=== PATIENT | female | born 1975 | race Caucasian/White ===

== ENCOUNTER 2024-03-29 16:47 | Emergency (ER) | payer OTHER, SELFPAY ==
--- NOTE | ~2024-03-29 | XR_ITS ---
EXAMINATION: XR CHEST CLINICAL INFORMATION: Shortness of breath. COMPARISON: None available. TECHNIQUE: Frontal view of the chest was obtained. FINDINGS: The patient is moderately rotated to the right. The lungs are adequately expanded. No evidence of focal consolidation, pleural effusion, pulmonary edema, or pneumothorax. The cardiomediastinal silhouette is within normal limits. Aortic calcifications. No acute osseous abnormalities. XR/XR chest 1V IMPRESSION: No No evidence acute pulmonary abnormalities. Electronically signed by: Mckay Cantrell DO 03/29/2024 08:49 PM EST
--- NOTE | ~2024-03-29 | CT_ITS ---
EXAMINATION: CT ANGIOGRAM HEAD CT ANGIOGRAM NECK CLINICAL INFORMATION: Altered mental status. COMPARISON: None available. TECHNIQUE: Initial noncontrast client account representative imaging of the head and neck was performed. Noncontrast head CT was also performed. Test bolus sequences followed by intravenous administration 70 mL of Omnipaque 350. Helical imaging was performed in the axial plane from the aortic arch to the skull vertex. Delayed postcontrast imaging of the head was also performed. The data was processed at the surgical technologist's workstation for generation of MIP sequences. Angled MIPs and volume rendered reformatted images were also generated at an offline 3D workstation. Stenoses are assessed in accordance with NASCET criteria unless otherwise indicated. This CT examination was performed using dose optimization techniques as appropriate, variously including the following: *Automated exposure control. *Adjustment of mA and/or kV according to patient size (this includes techniques or standardized protocols for targeted exams where dose is matched to indication/reason for exam; i.e. extremities or head). *Use of iterative reconstruction technique. DLP: 2226 mGy-cm FINDINGS: CT Head: There is no evidence of acute intracranial hemorrhage or edematous territorial infarction. Lorenzo-white matter differentiation is preserved. Prominent perivascular spaces caudal to the lentiform nuclei. No additional parenchymal attenuation abnormalities. The ventricles are normal in morphology and size. No evidence for obstructive hydrocephalus. No abnormal mass effect or midline shift. No extra-axial fluid collections. No pathologic intra-axial enhancement or regional oligemia. No acute soft tissue or osseous abnormalities. Mild mucosal thickening of the paranasal sinuses. The mastoid air cells and middle ear cavities are clear. Multifocal odontogenic enamel erosions and periapical lucencies, most notably affecting the mandibular right molar. CT Neck: There is a 4.2 cm heterogeneous lesion in the inferior aspect of the left thyroid lobe with extension into the thoracic inlet. Moderate irregular enlargement of the remainder of the thyroid gland. The remaining cervical soft tissues are within normal limits. Straightening of the normal cervical lordosis. Moderate degenerative disc disease from C5-T1. Facet and uncovertebral joint arthropathy leads to osseous encroachment on the neural foramina from C2-C7. CT Upper Chest: The visualized lung apices and upper mediastinum are within normal limits. Neck CTA: Aortic Arch: Normal contour and caliber. Classic 3 vessel branching pattern of the aortic arch. Great Vessel Origins: No significant stenosis of the branch origins. Right Common Carotid Artery: No focal stenosis or occlusion. Cervical Right Internal Carotid Artery: Normal opacification without focal stenosis or occlusion. Left Common Carotid Artery: No focal stenosis or occlusion. Cervical Left Internal Carotid Artery: Minimal calcific atherosclerotic disease of the carotid bulb and proximal internal carotid artery without flow-limiting stenosis. Cervical Right Vertebral Artery: Co-dominant. 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 No focal stenosis or occlusion. Cervical Left Vertebral Artery: Co-dominant. No focal stenosis or occlusion. Brain CTA: Intracranial Internal Carotid Arteries: Mild calcific atherosclerotic disease of the intracranial internal carotid arteries without occlusion or flow-limiting stenosis. Right Anterior Cerebral Artery: Normal A1 segment. Normal opacification of the distal [place] segments. Left Anterior Cerebral Artery: Normal A1 segment. Normal opacification of the distal [place] segments. Anterior Communicating Artery: Normal. Right Middle Cerebral Artery: Normal M1 segment of the MCA without focal stenosis or occlusion. Normal arborization of the distal segments. Left Middle Cerebral Artery: Normal M1 segment of the MCA without focal stenosis or occlusion. Normal arborization of the distal segments. Right Vertebral Artery: Normal V4 segment. The posterior inferior cerebellar artery is not well opacified; however, there is no CT evidence of acute occlusion. Left Vertebral Artery: Normal V4 segment. The posterior inferior cerebellar artery is not well opacified; however, there is no CT evidence of acute occlusion. Basilar Artery: Normal without focal stenosis or occlusion. Normal appearance of the proximal superior cerebellar arteries. Right Posterior Cerebral Artery: Normal P1 segment. Normal opacification of the distal [employer] segments. Left Posterior Cerebral Artery: Normal P1 segment. Normal posterior communicating artery. Normal opacification of the distal [employer] segments. Normal opacification of the superior sagittal, straight, transverse, and sigmoid sinuses. CT/CT angio head neck IMPRESSION: 1. No evidence of acute intracranial hemorrhage or edematous territorial infarction. 2. CTA of the head and neck without proximal occlusion or flow-limiting stenosis. 3. Heterogeneous enlargement of the thyroid gland. There is a 4.2 cm heterogeneous lesion in the inferior aspect of the left thyroid lobe with extension into the thoracic inlet. Recommend further characterization with thyroid ultrasound. 4. Moderate multilevel degenerative spondyloarthropathy of the cervical spine. Electronically signed by: Mckay Cantrell DO 03/29/2024 11:28 PM [facility]
[2024-03-29 17:10] VITALS: BP 166/116; BP 170/110; PULSE 120; PULSE 121; RESP 25; TEMP 37.7; O2SAT 95; O2SAT 98; BMI 28.3
--- NOTE | 2024-03-29 17:28 | ECG_ITS ---
Test Reason : HEART SCREANING Blood Pressure : / mmHG Vent. Rate : 117 BPM Atrial Rate : 117 BPM P-R Int : 118 ms QRS Dur : 082 ms QT Int : 306 ms P-R-T Axes : 066 027 -13 degrees QTc Int : 426 ms Sinus tachycardia Nonspecific ST and T wave abnormality Abnormal ECG No previous ECGs available Referred By: Sarah Salinas Electronically Signed By:PRASAD HENRY
--- NOTE | 2024-03-29 17:33 | ED.GENADULT ---
HPI - General Adult General Chief complaint: Altered Mental Status Stated complaint: AMS FROM [facility] Time Seen by Provider: 03/29/24 17:03 History of Present Illness ED Provider: Dr. Salinas HPI narrative: 49 y/o F patient; PMH COVID positive on 03/28/2024, HTN, schizophrenia, seizure disorder; presents via EMS from [facility] with report of altered mental status. The patient was seen at [facility] yesterday where she was diagnosed wth COVID and discharged back to the facility. Patient has been at [facility] for 1 week. Related Data Allergies Allergy/AdvReac Type Severity Reaction Status Date / Time amoxicillin AdvReac Unknown Unknown Verified 03/29/24 17:26 Review of Systems Review of Systems: Yes Unobtainable due to mental status PMFSH Past Medical History Attestation statement: The following information was validated with the patient. Source: old records reviewed Social History Social History Advance Directives: No Advance Directives Information Provided: No Do you have a plan to hurt others: No Plan Physical Exam ED Vital Signs: Vital Signs - 24 hr 03/29/24 17:10 03/29/24 18:05 Temperature 99.9 F 99.2 F Pulse Rate 121 H 114 H Respiratory Rate 25 H 18 Blood Pressure 166/116 H 164/114 H Pulse Oximetry 95 97 Oxygen Delivery Method Room Air Room Air BMI result Body Mass Index 28.3 Patient is afebrile, tachycardic, tachypnic, and hypertensive. Const General: patient obtunded Orientation/consciousness: patient obtunded [facility] Head: Yes normal to inspection and Yes atraumatic Eyes General: appearance normal, both eyes and all related structures Conjunctivae: conjunctivae normal Pupils: Dilated pupils Neck Neck: Yes normal visual inspection Chest Chest palpation & inspection: normal inspection of the chest and normal palpation of entire chest wall Resp Effort & Inspection: normal respiratory effort, no cough and no respiratory distress Auscultation: clear to auscultation bilaterally Cardio Rate: tachycardic Rhythm: regular rhythm Peripheral pulses: Peripheral pulses 2+ throughout GI Inspection: Yes normal to inspection, No Abdominal wall edema and No distended Palpation (GI): Soft to palpation, not firm, nontender, no guarding and not rigid Auscultation: normal bowel sounds Back/Spine/Pelvis Back: No back tenderness Neuro Other: AOx0 as patient is not verbalizing 6mm dilated pupils bilaterally Moving bilateral upper extremities Not following commands General: patient obtunded Course Course Course Narrative: Patient is afebrile, tachycardic, tachypnic, and hypertensive. Will obtain CT Head, CXR, and laboratory studies. Will obtain EKG. Will attempt to obtain records from [facility]. Providing 1L IVF and 1g IV Tylenol. Labs reviewed. No leukocytosis. VBG reassuring. Ethanol, salicylate, tylenol negative. CXR unremarkable. Pending CTA results. Plan: Transition care to Dr. Contreras Condition: Stable Medications Administered Discontinued Medications Generic Name Dose Route Start Last Admin Trade Name Freq PRN Reason Stop Dose Admin Acetaminophen 1,000 mg in 100 mls @ 400 mls/hr 03/29/24 17:43 03/29/24 18:44 Ofirmev IV 03/29/24 17:57 400 mls/hr ONCE ONE Administration Sodium Chloride 1,000 mls @ 999 mls/hr 03/29/24 17:45 03/29/24 18:43 Ns IV 03/29/24 18:45 999 mls/hr .Q1H1M CRISTINA Administration Iohexol 70 ml 03/29/24 20:10 03/29/24 20:10 Iohexol 350 Mg/Ml 100 Ml Infus..Btl IV 03/29/24 20:11 70 ml ONCE ONE Administration Medical Decision Making Lab Data 03/29/24 18:19 03/29/24 18:19 Labs: Lab Results 03/29/24 03/29/24 Range/Units 18:19 18:25 WBC 9.4 (4.8-10.8) X10*3/uL RBC 5.14 (4.20-5.50) X10*6/uL Hgb 17.0 H (12.0-16.0) g/dl Hct 46.5 (37.0-47.0) % MCV 90.5 (80.0-98.0) fL MCH 33.1 H (27.0-33.0) pg MCHC 36.6 H (31.0-35.0) g/dl RDW 11.9 (11.0-16.0) % Plt Count 185 (160-400) X10*3/uL MPV 12.0 (9.4-12.3) fL Immature Gran % (Auto) 0.3 (0.0-0.4) % Neut % (Auto) 62.0 (45-73) % Lymph % (Auto) 28.2 (20-40) % Door % (Auto) 8.9 (2-11) % Eos % (Auto) 0.2 (0-4) % Baso % (Auto) 0.4 (0-2) % Lymph # (Auto) 2.7 (1.2-4.9) X10*3/uL Door # (Auto) 0.8 (0.1-1.2) X10*3/uL Eos # (Auto) 0.0 (0.0-0.4) X10*3/uL Baso # (Auto) 0.0 (0.0-0.2) X10*3/uL Abs Immat Gran (auto) 0.03 (0.00-0.03) X10*3/uL Absolute Neuts (auto) 5.8 (2.0-8.3) x10*3/uL Absolute Nucleated RBC 0.000 (0.0-0.012) X10*3/uL Nucleated RBC % (auto) 0.0 (0.0-0.2) /100WBC VBG pH 7.41 (7.32-7.43) VBG pCO2 34 mmHg VBG pO2 112 mmHg VBG HCO3 22 (22-26) mmol/L VBG O2 Saturation 100.0 % VBG Base Excess -1.7 mmol/L Sodium 145 (135-145) mmol/L Potassium 3.4 (3.3-5.1) mmol/L Chloride 112 H (96-108) mmol/L Carbon Dioxide 23 (22-29) mmol/L Anion Gap 13 (12-20) BUN 15 (9-16) mg/dL Creatinine 0.70 (0.5-1.4) mg/dL Estim Creat Clear Calc 97.7 Estimated GFR > 60 Random Glucose 102 (60-115) mg/dL Lactic Acid 0.8 (0.5-2.0) mmol/L Calcium 9.6 (8.4-10.2) mg/dL Total Bilirubin 0.5 (0.0-1.0) mg/dL Direct Bilirubin 0.2 (0.0-0.5) mg/dL AST 23 (5-31) U/L ALT 21 (0-31) U/L Alkaline Phosphatase 65 (39-117) U/L Total Creatine Kinase 67 (26-140) U/L Total Protein 7.7 (6.5-8.0) g/dL Albumin 4.7 (3.5-5.0) g/dL Lipase 13 (8-78) U/L Beta HCG, Quant 3 mIU/mL Salicylates < 5.0 L (15-30) mg/dL Acetaminophen < 3 (<30) mcg/mL Ethyl Alcohol < 10 mg/dL Independent Interpretation I performed an independent interpretation of an: EKG Interpretation: ST 117BPM without ischemic changes Radiology Impression Discussion of test interpretation with radiology: I have reviewed the radiologist's reading. Radiologist Impression: EXAMINATION: XR CHEST CLINICAL INFORMATION: Shortness of breath. COMPARISON: None available. TECHNIQUE: Frontal view of the chest was obtained. FINDINGS: The patient is moderately rotated to the right. The lungs are adequately expanded. No evidence of focal consolidation, pleural effusion, pulmonary edema, or pneumothorax. The cardiomediastinal silhouette is within normal limits. Aortic calcifications. No acute osseous abnormalities. XR/XR chest 1V IMPRESSION: No No evidence acute pulmonary abnormalities. Electronically signed by: Mckay Cantrell DO 03/29/2024 08:49 PM EST Discharge Plan Discharge Clinical Impression: COVID, Altered mental status Patient Disposition: Still a Patient Print Language: Occitan
[2024-03-29 18:05] VITALS: BP 164/114; PULSE 114; RESP 18; TEMP 37.3; O2SAT 97
--- NOTE | 2024-03-29 18:06 | MHC.EDTECH ---
Patient cleaned up and hourly vitals and round completed,Patient rest quietly in the bed within call belt in reach.
[2024-03-29 18:25] LABS: MANUAL DIFF FLAG NO
[2024-03-29 18:30] LABS: VBG Base Excess -1.7 mmol/L; VBG HCO3 22 mmol/L (22-26); VBG pCO2 34 mmHg; VBG pH 7.41 (7.32-7.43); VBG pO2 112 mmHg
[2024-03-29 18:30] LABS: Venous Blood Gas Refer to POC result
[2024-03-29 18:30] LABS: Basophils Percent Auto 0.4 % (0-2); Eosinophils Percent Auto 0.2 % (0-4); Hematocrit 46.5 % (37.0-47.0); Imm Gran Abs Auto 0.03 X10*3/uL (0.00-0.03); Imm Gran Pct Auto 0.3 % (0.0-0.4); Lymphocytes Absolute Auto 2.7 X10*3/uL (1.2-4.9); Lymphocytes Percent Auto 28.2 % (20-40); Mean Corpuscular HGB Conc 36.6 g/dl (31.0-35.0); Mean Corpuscular Hemoglobin 33.1 pg (27.0-33.0); Mean Corpuscular Volume 90.5 fL (80.0-98.0); Monocytes Absolute Auto 0.8 X10*3/uL (0.1-1.2); Monocytes Percent Auto 8.9 % (2-11); Neutrophils Absolute Auto 5.8 x10*3/uL (2.0-8.3); Platelet Count 185 X10*3/uL (160-400); Red Blood Count 5.14 X10*6/uL (4.20-5.50); Red Cell Distribution Width 11.9 % (11.0-16.0); White Blood Count 9.4 X10*3/uL (4.8-10.8)
[2024-03-29] MEDS: 0.9 % Sodium Chloride 1,000 ML 999 ML IV (18:43)
[2024-03-29] MEDS: Acetaminophen 1,000 MG/100 ML PIGGYBACK 400 MG IV (18:44)
[2024-03-29 18:59] LABS: Lactic Acid 0.8 mmol/L (0.5-2.0)
[2024-03-29 19:01] LABS: Acetaminophen LAB < 3 mcg/mL (<30); Salicylate < 5.0 mg/dL (15-30)
[2024-03-29 19:12] LABS: Alanine Aminotransferase 21 U/L (0-31); Albumin Level 4.7 g/dL (3.5-5.0); Alkaline Phosphatase 65 U/L (39-117); Anion Gap 13 (12-20); Aspartate Amino Transferase 23 U/L (5-31); Bilirubin Direct 0.2 mg/dL (0.0-0.5); Bilirubin Total 0.5 mg/dL (0.0-1.0); Blood Urea Nitrogen 15 mg/dL (9-16); Calcium 9.6 mg/dL (8.4-10.2); Carbon Dioxide 23 mmol/L (22-29); Chloride 112 mmol/L (96-108); Creatinine Clr Calc Pharmacy 97.7; Estimated Glomerular Filt Rate > 60; Ethanol < 10 mg/dL; Glucose Random 102 mg/dL (60-115); HCG Quantitative 3 mIU/mL; Lipase 13 U/L (8-78); Potassium 3.4 mmol/L (3.3-5.1); Sodium 145 mmol/L (135-145); Total Protein 7.7 g/dL (6.5-8.0)
[2024-03-29 20:00] VITALS: BP 168/107; PULSE 102; RESP 16; TEMP 36.8; O2SAT 96
[2024-03-29] MEDS: iohexoL 350 MG/ML 100 ML INFUS..BTL 70 ML IV (20:10)
--- NOTE | 2024-03-29 20:25 | PC.NURSE ---
Josesito from [facility] called for an update. Update provided. Josesito reports pt has not been med compliant and has concerns regarding pts hx of seizures. Josesito may be reached at [phone]. Dr. Salinas made aware. Pt is currently resting at the bedside. Not engaging or answering any questions. Responds to light nail bed pressure/painful stimuli by trying to move the hand away. Pending CT scan results for disposition.
[2024-03-29] MEDS: levETIRAcetam 3,000 MG in 0.9 % Sodium Chloride 100 ML 410 MG IV (21:27)
[2024-03-29] MEDS: LORazepam 2 MG/ML VIAL 1 MG IVPUSH (21:28)
[2024-03-30] VITALS: BP 162/106; PULSE 96; RESP 16; TEMP 37.3; O2SAT 97
[2024-03-30] MEDS: LORazepam 2 MG/ML VIAL 1 MG IVPUSH (00:19)
[2024-03-30] MEDS: Lactated Ringers 1,000 ML 999 ML IV (00:21)
[2024-03-30 01:28] VITALS: BP 152/101; PULSE 86; RESP 18; TEMP 36.8; O2SAT 97
[2024-03-30 01:29] VITALS: BP 152/101; PULSE 86; RESP 18; TEMP 36.8; O2SAT 97
[2024-03-30 01:33] LABS: Thyroid Stimulating Hormone 0.06 uIU/mL (0.32-4.0)
== END 2024-03-30 01:30 | disposition home or self-care (01) ==
PROVIDERS: Emergency Medicine; Emergency Provider Emergency Medicine
DX: U07.1 COVID-19 (principal); R41.82 Altered mental status, unspecified; R00.0 Tachycardia, unspecified; R11.2 Nausea with vomiting, unspecified; F25.9 Schizoaffective disorder, unspecified; I10 Essential (primary) hypertension; R06.02 Shortness of breath; Z79.899 Other long term (current) drug therapy; Z51.81 Encounter for therapeutic drug level monitoring
CPT/HCPCS: 36415; 70496; 70498; 71045; 80048; 80076; 80143; 80179; 80307; 82550; 82803; 83605; 83690; 84443; 84702; 85025; 93005; 96361; 96365; 96375; 96376; 99284; J0131; J1953; J2060; J7120; Q9967

== ENCOUNTER → 2024-03-29 17:28 | Outpatient (BNV) | payer OTHER, SELFPAY | PROVIDERS: Emergency Provider Emergency Medicine; Visit Provider Internal Medicine | DX: R00.0 Tachycardia, unspecified (principal) | CPT/HCPCS: 93010 ==